=== PATIENT | male | born 1970 | race Caucasian/White ===

== ENCOUNTER 2019-11-21 20:14 | Inpatient (IN) | payer MEDICAID, OTHER ==
[~2019-11-21] VITALS: Ht 185.4 cm; Wt 150.3 kg
[2019-11-21] MEDS ORDERED: NITROGLYCERIN SINGLE TAB 0.4 MG SL ONE (20:53)
[2019-11-21] MEDS: NITROGLYCERIN SINGLE TAB 0.4 MG SL PRN ×2 (20:59→22:00)
[2019-11-21 21:08] LABS: BASOPHILS % (AUTO) 1 % (0-1); EOSINOPHILS % (AUTO) 2 % (1-7); LYMPHOCYTES # (AUTO) 2.37 x10^3/uL (1-3.4); LYMPHOCYTES % (AUTO) 23 % (22-44); MD NO; MEAN CORPUSCULAR HEMOGLOBIN 28.2 pg (27.5-34.5); MEAN CORPUSCULAR HGB CONC 33.2 g/dL (33.2-36.2); MEAN CORPUSCULAR VOLUME 84.7 fL (81-97); MEAN PLATELET VOLUME 8.5 fL (7.4-10.4); MONOCYTES # (AUTO) 0.42 x10^3/uL (0.2-0.8); MONOCYTES % (AUTO) 4 % (2-9); NEUTROPHILS # (AUTO) 7.05 x10^3/uL (1.8-6.8); NEUTROPHILS % (AUTO) 69 % (42-75); PLATELET COUNT 256 x10^3/uL (130-400); RED BLOOD COUNT 5.18 x10^6/uL (4.38-5.82); RED CELL DISTRIBUTION WIDTH 14.9 % (9.4-14.8)
[2019-11-21 21:19] LABS: ALANINE AMINOTRANSFERASE 19 U/L (12-78); ALBUMIN 3.1 g/dL (3.4-5.0); ANION GAP 8 mmol/L (5-15); CALCIUM 8.6 mg/dL (8.5-10.1); CHLORIDE 102 mmol/L (98-107); CREATININE 1.41 mg/dL (0.7-1.3)
[2019-11-21 21:23] LABS: ALKALINE PHOSPHATASE 119 U/L (45-117); BILIRUBIN,TOTAL 0.3 mg/dL (0.2-1.0); TROPONIN I 0.081 ng/mL (0.000-0.045)
--- NOTE | 2019-11-21 21:41 | NUR ---
Late entry from 2019: Patient BIB [facility] c/o SOB with intermittent cough x3-5 days. Tonight patient had acute onset left side CP which radiates into left arm. Denies N/V. Patient did not take anything for the pain. Patient is in NAD. Respirations even and unlabored.
--- NOTE | 2019-11-21 21:42 | NUR ---
Patient states the pain is now from his left nipple over to his shoulder and into his back. Pain is a 4/10 at this time. Patient has had Nitro SL x2.
[2019-11-21] MEDS ORDERED: POTASSIUM CHLORIDE 20 MEQ TAB.ER.PRT PO ONE (22:00)
[2019-11-21] MEDS ORDERED: FUROSEMIDE 40 MG/4 ML IV ONE (22:00)
[2019-11-21] MEDS ORDERED: FUROSEMIDE 20 MG/2 ML ONE (22:29)
[2019-11-21] MEDS ORDERED: ONDANSETRON 2MG/ML, 2ML ONE (22:29)
[2019-11-21] MEDS ORDERED: MORPHINE SULFATE 4 MG/ML, 1ML ONE (22:29)
[2019-11-21] MEDS ORDERED: POTASSIUM CHLORIDE 20 MEQ TAB.ER.PRT ONE (22:29)
[2019-11-21] MEDS ORDERED: ONDANSETRON 2MG/ML, 2ML IVPush ONE (22:30)
[2019-11-21] MEDS ORDERED: MORPHINE SULFATE 4 MG/ML, 1ML IVPush PRN (22:30)
--- NOTE | 2019-11-21 22:40 | NUR ---
Patient medicated per emar, toelrated well. Placed on 2L NC for comfort. Desat to 89% after morphine given. Now at 97%.
--- NOTE | 2019-11-21 22:44 | NUR ---
Switched to Oxymask for patietn comfort
[2019-11-21] MEDS ORDERED: OMNIPAQUE 350 MG/ML, 100ML BOTTLE ONE (23:04)
--- NOTE | 2019-11-21 23:16 | NUR ---
[facility] DECL[facility]SFER AND [facility] DECLIN[facility] TRANSFER
[2019-11-21] MEDS ORDERED: HEPARIN 5,000 UNITS/ML, 1ML ONE (23:27)
[2019-11-21] MEDS ORDERED: ACETAMINOPHEN 325 MG TABLET PO PRN (23:30)
[2019-11-21] MEDS ORDERED: HEPARIN 5,000 UNITS/ML, 1ML IV ONE (23:30)
[2019-11-21] MEDS ORDERED: METOPROLOL 1 MG/ML, 5ML IVPush ONE (23:30)
[2019-11-21] MEDS ORDERED: DEXTROSE 4 GM TAB.CHEW PO PRN (23:30)
[2019-11-21] MEDS ORDERED: GLUCAGON 1 MG IM PRN (23:30)
[2019-11-21] MEDS ORDERED: morphine SULFATE 10 MG/ML, 1ML IVPush PRN (23:30)
[2019-11-21] MEDS ORDERED: HEPARIN 25,000 UNITS/250ML PMX 250 ML IV PRN (23:30)
[2019-11-21] MEDS ORDERED: DEXTROSE 50%, 50ML SYRINGE IVPush PRN (23:30)
[2019-11-21] MEDS: SODIUM CHLORIDE FLUSH 10ML SYR IVF SCH (23:30)
[2019-11-21] MEDS ORDERED: ENALAPRILAT 1.25 MG/ML, 2ML IVPush PRN (23:30)
[2019-11-21] MEDS ORDERED: HYDROcodone/APAP 5/325 TABLET PO PRN (23:30)
[2019-11-21] MEDS ORDERED: ONDANSETRON 2MG/ML, 2ML IVPush PRN (23:30)
[2019-11-21] MEDS ORDERED: METOPROLOL 1 MG/ML, 5ML ONE (23:34)
[2019-11-21] MEDS ORDERED: HEPARIN 25,000 UNITS/250ML PMX 250 ML ONE (23:34)
[2019-11-22] VITALS (7 sets, daily range): BP systolic 153–189; BP diastolic 78–118
[2019-11-22] MEDS ORDERED: INSU100V13 SC (00:13)
[2019-11-22] MEDS ORDERED: LISI-170 PO (00:13)
[2019-11-22] MEDS ORDERED: LORA-445 PO (00:13)
[2019-11-22] MEDS ORDERED: INSU100C5 SQ-INSULIN (00:13)
[2019-11-22] MEDS ORDERED: MULT-658 PO (00:13)
[2019-11-22] MEDS ORDERED: GABA-827 PO (00:13)
[2019-11-22] MEDS ORDERED: CLON-275 PO (00:13)
[2019-11-22] MEDS ORDERED: HEPARIN 5,000 UNITS/ML, 1ML IV PRN (01:00)
[2019-11-22] MEDS: INSULIN LISPRO 100 UNITS/ML, PEN SQ-INSULIN SCH ×5 (03:05→22:15)
[2019-11-22 03:23] LABS: ANION GAP 6 mmol/L (5-15); CALCIUM 8.2 mg/dL (8.5-10.1); CHLORIDE 103 mmol/L (98-107)
[2019-11-22 03:28] LABS: ALANINE AMINOTRANSFERASE 19 U/L (12-78); ALKALINE PHOSPHATASE 113 U/L (45-117); BILIRUBIN,TOTAL 0.5 mg/dL (0.2-1.0); CHOL/HDL RATIO 5.1; CHOLESTEROL, TOTAL 188 mg/dL (140-239); HDL CHOL % 20 % (26-37); HDL CHOLESTEROL (DIRECT) 37 mg/dL (40-60); TRIGLYCERIDES 184 mg/dL (50-200); VLDL CHOLESTEROL 37 mg/dL (0-25)
[2019-11-22 03:29] LABS: LDL CHOLESTEROL,CALCULATED 114 mg/dL (54-169); LDL/HDL RATIO 3.1 (0.5-3.0); TROPONIN I 0.102 ng/mL (0.000-0.045)
[2019-11-22] MEDS ORDERED: NITROGLYCERIN 0.4 MG BOTTLE (25 TABS) SL PRN (05:00)
[2019-11-22] MEDS ORDERED: NITROGLYCERIN 0.4 MG/SPRAY SL PRN (05:00)
[2019-11-22] MEDS: hydrALAzine 20 MG/ML, 1ML IVPush PRN ×2 (05:08→13:42)
[2019-11-22 06:25] LABS: BASOPHILS # (AUTO) 0.19 x10^3/uL (0-0.1); BASOPHILS % (AUTO) 2 % (0-1); EOSINOPHILS # (AUTO) 0.27 x10^3/uL (0-0.4); EOSINOPHILS % (AUTO) 3 % (1-7); LYMPHOCYTES # (AUTO) 2.42 x10^3/uL (1-3.4); LYMPHOCYTES % (AUTO) 25 % (22-44); MD NO; MEAN CORPUSCULAR HEMOGLOBIN 28.2 pg (27.5-34.5); MEAN CORPUSCULAR HGB CONC 32.7 g/dL (33.2-36.2); MEAN CORPUSCULAR VOLUME 86.2 fL (81-97); MEAN PLATELET VOLUME 8.2 fL (7.4-10.4); MONOCYTES # (AUTO) 0.52 x10^3/uL (0.2-0.8); MONOCYTES % (AUTO) 5 % (2-9); NEUTROPHILS # (AUTO) 6.41 x10^3/uL (1.8-6.8); NEUTROPHILS % (AUTO) 65 % (42-75); PLATELET COUNT 237 x10^3/uL (130-400); RED BLOOD COUNT 5.07 x10^6/uL (4.38-5.82); RED CELL DISTRIBUTION WIDTH 14.7 % (9.4-14.8)
[2019-11-22] MEDS ORDERED: METOPROLOL SUCCINATE 25 MG TAB.ER.24H PO SCH (08:30)
[2019-11-22] MEDS: CLOPIDOGREL 75 MG TABLET PO SCH (08:41)
[2019-11-22] MEDS: POTASSIUM CHLORIDE 20 MEQ PACKET PO SCH ×2 (08:41→16:53)
[2019-11-22] MEDS: IRBESARTAN 300 MG TABLET PO SCH (08:41)
[2019-11-22] MEDS: FUROSEMIDE 20 MG/2 ML IV SCH ×2 (08:42→16:53)
[2019-11-22] MEDS: SODIUM CHLORIDE FLUSH 10ML SYR IVF SCH ×2 (08:42→22:08)
[2019-11-22] MEDS ORDERED: LISINOPRIL 20 MG TABLET PO SCH (09:00)
[2019-11-22] MEDS ORDERED: ACETAMINOPHEN 325 MG TABLET PO PRN (09:00)
[2019-11-22 09:39] LABS: HCT (SEDRATE) 45.5 % (39.2-51.8)
[2019-11-22 09:55] LABS: TROPONIN I 0.048 ng/mL (0.000-0.045)
[2019-11-22] MEDS ORDERED: MIDAZOLAM 1 MG/ML, 5ML ONE (12:16)
[2019-11-22] MEDS ORDERED: LIDOCAINE-MPF 1%, 5ML ONE (12:16)
[2019-11-22] MEDS ORDERED: VERAPAMIL 2.5 MG/ML, 2ML ONE (12:16)
[2019-11-22] MEDS ORDERED: FENTANYL PF 100 MCG/2ML ONE (12:16)
[2019-11-22] MEDS ORDERED: HEPARIN 1,000 UNITS/ML, 10ML ONE (12:16)
[2019-11-22] MEDS ORDERED: BIVALIRUDIN 250 MG ONE (12:39)
[2019-11-22] MEDS: SODIUM CHLORIDE 0.9% 1,000 ML IV SCH ×2 (13:37→21:05)
[2019-11-22] MEDS: LABETALOL 5MG/ML, 20ML IVPush PRN ×2 (14:40→22:25)
[2019-11-22] MEDS: CARVEDILOL 3.125 MG TABLET PO SCH (17:56)
[2019-11-22] MEDS ORDERED: ATORVASTATIN 40 MG TABLET PO SCH (21:00)
[2019-11-23 02:46] VITALS: BP 158/90
[2019-11-23 04:14] VITALS: BP 181/93
[2019-11-23] MEDS: LABETALOL 5MG/ML, 20ML IVPush PRN (04:16)
[2019-11-23 05:04] LABS: ANION GAP 7 mmol/L (5-15); CALCIUM 8.1 mg/dL (8.5-10.1); CHLORIDE 101 mmol/L (98-107); CREATININE 1.28 mg/dL (0.7-1.3)
[2019-11-23] MEDS: SODIUM CHLORIDE 0.9% 1,000 ML IV SCH (05:05)
[2019-11-23 06:11] VITALS: BP 146/96
[2019-11-23] MEDS: FUROSEMIDE 20 MG/2 ML IV SCH (06:15)
[2019-11-23] MEDS: CARVEDILOL 3.125 MG TABLET PO SCH (06:15)
[2019-11-23] MEDS: INSULIN LISPRO 100 UNITS/ML, PEN SQ-INSULIN SCH ×2 (07:00→11:22)
[2019-11-23] MEDS: CLOPIDOGREL 75 MG TABLET PO SCH (08:28)
[2019-11-23] MEDS: POTASSIUM CHLORIDE 20 MEQ PACKET PO SCH (08:28)
[2019-11-23] MEDS: SODIUM CHLORIDE FLUSH 10ML SYR IVF SCH (08:29)
[2019-11-23] MEDS ORDERED: INSULIN GLARGINE 100 UNITS/ML, PEN SQ-INSULIN SCH (10:30)
[2019-11-23] MEDS ORDERED: ENOXAPARIN 40 MG/0.4 ML SQ SCH (11:00)
[2019-11-23] MEDS ORDERED: HYDROCHLOROTHIAZIDE 25 MG TABLET PO SCH (11:00)
[2019-11-23] MEDS: IRBESARTAN 300 MG TABLET PO SCH (11:21)
[2019-11-23] MEDS ORDERED: ATOR40TA78 PO (13:49)
[2019-11-23] MEDS ORDERED: CARV6.2512 PO (13:49)
[2019-11-23] MEDS ORDERED: CLOP75TA PO (13:49)
[2019-11-23] MEDS ORDERED: IRBE300T40 PO (13:49)
[2019-11-23] MEDS ORDERED: HYDR-3342 PO (13:49)
[2019-11-23] MEDS ORDERED: HYDR25TA6 PO (13:49)
[2019-11-23] MEDS ORDERED: POTA20TA6 PO (13:50)
[2019-11-23] MEDS ORDERED: CARVEDILOL 6.25 MG TABLET PO SCH (18:00)
== END 2019-11-23 12:40 | disposition left against medical advice (07) | DRG 281 ==
LOC: ED 21:33 → EDIP 23:10 → 5SO 11-22 00:33 → ICU 11-22 13:27
PROVIDERS: ADMIT Hospitalist; ATTEND Hospitalist
PROC: 4A023N7 Measurement of Cardiac Sampling and Pressure, Left Heart, Percutaneous Approach (ICD-10-PCS; principal; 2019-11-22)
PROC: B2111ZZ Fluoroscopy of Multiple Coronary Arteries using Low Osmolar Contrast (ICD-10-PCS; 2019-11-22)
PROC: B2151ZZ Fluoroscopy of Left Heart using Low Osmolar Contrast (ICD-10-PCS; 2019-11-22)
DX: I21.4 Non-ST elevation (NSTEMI) myocardial infarction (principal); I13.0 Hypertensive heart and chronic kidney disease with heart failure and stage 1 through stage 4 chronic kidney disease, or unspecified chronic kidney disease; I16.9 Hypertensive crisis, unspecified; N17.9 Acute kidney failure, unspecified; Z68.41 Body mass index [BMI] 40.0-44.9, adult; E11.22 Type 2 diabetes mellitus with diabetic chronic kidney disease; E66.01 Morbid (severe) obesity due to excess calories; E87.6 Hypokalemia; G47.33 Obstructive sleep apnea (adult) (pediatric); I25.10 Atherosclerotic heart disease of native coronary artery without angina pectoris; I27.20 Pulmonary hypertension, unspecified; I50.9 Heart failure, unspecified; N18.3 Chronic kidney disease, stage 3 (moderate); Z20.828 Contact with and (suspected) exposure to other viral communicable diseases; Z53.29 Procedure and treatment not carried out because of patient's decision for other reasons; T46.4X5A Adverse effect of angiotensin-converting-enzyme inhibitors, initial encounter; Z79.82 Long term (current) use of aspirin; Z87.891 Personal history of nicotine dependence; Y92.89 Other specified places as the place of occurrence of the external cause
CPT/HCPCS: 36415; 71045; 71275; 80048; 80053; 80061; 82728; 82962; 83036; 83615; 83880; 84145; 84484; 85025; 85520; 85651; 86140; 87081; 93005; 93306; 93458; 94660; 96374; 99156; C1769; C1894; G0378; J0583; J1644; J1650; J1940; J2250; J2405; J3010; Q9967; J0360; J1815; J2270; J7030; U0001